=== PATIENT | male | born 1995 | race Caucasian/White ===

== ENCOUNTER 2023-10-05 14:20 | Outpatient (RCR) | payer BC, SELFPAY | END 2024-02-02 23:59 | disposition home or self-care (01) | PROVIDERS: Visit Provider Family Medicine | DX: M54.2 Cervicalgia (principal); R29.898 Other symptoms and signs involving the musculoskeletal system; Z51.89 Encounter for other specified aftercare; M54.10 Radiculopathy, site unspecified; Z74.09 Other reduced mobility | CPT/HCPCS: 97140; 97162 ==